=== PATIENT | male | born 2000 | race Two or more races ===

== ENCOUNTER 2021-03-02 18:55 | Emergency (ER) | payer OTHER ==
[~2021-03-02] VITALS: Ht 180.3 cm; Wt 90.9 kg
[2021-03-02 22:55] VITALS: BP 122/61
== END 2021-03-02 22:55 | disposition home or self-care (01) ==
LOC: EMS 18:58
DX: S20.212A Contusion of left front wall of thorax, initial encounter (principal); F17.210 Nicotine dependence, cigarettes, uncomplicated; F12.90 Cannabis use, unspecified, uncomplicated; V23.4XXA Motorcycle driver injured in collision with car, pick-up truck or van in traffic accident, initial encounter; Y93.89 Activity, other specified; Y92.89 Other specified places as the place of occurrence of the external cause; Y99.8 Other external cause status
CPT/HCPCS: 71101; 99283